=== PATIENT | male | born 1940 | race Caucasian/White ===

== ENCOUNTER 2019-10-13 09:29 | Outpatient (CLI) | payer OTHER, SELFPAY ==
--- NOTE | 2019-10-13 10:04 | CT_ITS ---
WS: [id number] CT ABDOMEN PELVIS TECHNIQUE: Contrast-enhanced CT of the abdomen and pelvis with coronal and sagittal reformatted image s. CLINICAL INFORMATION: ABDOMINAL PAIN COMPARISON: None. DLP: 1792.[address] scans at [facility] use at least one of these dose optimization techniques: automat ed exposure control; mA and/or kV adjustment per patient size (includes targeted exams where dose is matched to clinical indication); or iterative reconstruction. FINDINGS: Cholecystectomy. Portal vein and splenic vein are normal. Small splenule. Prior esophageal hiatal her tirso repair. Subsegmental atelectasis in the lingula. Lung bases are well aerated. Aortic calcificatio n. Dense mesenteric calcification. Adrenal glands are normal. Bilateral renal cortical atrophy. No hydronephrosis. 6 mm left renal cyst. No periaortic lymphadenopa thy. Calcified slightly enlarged prostate. Prostate measures 3.6 x 5.0 CM. Normal sigmoid colon. No eviden ce of small or large bowel obstruction. No inguinal lymphadenopathy. Slight anterolisthesis L4 on L5. CT/CT abdomen pelvis w con* [id number] IMPRESSION: 1. Prior cholecystectomy. 2. Prior esophageal hiatal hernia repair. No significant recurrent hernia. 3. Bilateral renal cortical atrophy. No hydronephrosis. Tiny left renal cyst m easuring 6 mm. 4. Sigmoid colon is normal in appearance. No evidence of small or large bowel obstruction. 5. Calcified slightly enlarged prostate. Recommend correlation PSA.
[2019-10-13] MEDS: iohexol 300 mg/mL 50 mL Btl IV (10:32)
[2019-10-13 11:04] LABS: Blood Urea Nitrogen 23 mg/dL (8-23)
[2019-10-13] MEDS: iodixanol 320 mg/mL 100mL Btl IV (11:54)
== END 2019-10-13 09:30 | disposition home or self-care (01) ==
PROVIDERS: Family Provider Nurse Practitioner Family; PCP Nurse Practitioner Family; Visit Provider Surgery
DX: N40.0 Benign prostatic hyperplasia without lower urinary tract symptoms (principal); N26.1 Atrophy of kidney (terminal); R10.9 Unspecified abdominal pain; Z90.49 Acquired absence of other specified parts of digestive tract
CPT/HCPCS: 36415; 74177; 82565; 84520